=== PATIENT | male | born 1990 | race Caucasian/White ===

== ENCOUNTER 2020-10-18 10:56 | Emergency (ER) | payer OTHER | END 2020-10-18 12:39 | disposition home or self-care (01) | LOC: NAV ERS 10:56 | DX: T23.001A Burn of unspecified degree of right hand, unspecified site, initial encounter (principal); R27.8 Other lack of coordination; F17.210 Nicotine dependence, cigarettes, uncomplicated; W86.1XXA Exposure to industrial wiring, appliances and electrical machinery, initial encounter | CPT/HCPCS: 99284 ==

== ENCOUNTER 2023-03-27 11:31 | Emergency (ER) | payer SELFPAY ==
[2023-03-27] MEDS ORDERED: Ketorolac Tromethamine 30 MG/ML VIAL ONE (12:04)
== END 2023-03-27 12:25 | disposition home or self-care (01) ==
LOC: NAV ERS 11:31
DX: K04.7 Periapical abscess without sinus (principal); F17.210 Nicotine dependence, cigarettes, uncomplicated; Z79.82 Long term (current) use of aspirin
CPT/HCPCS: 96372; 99283; J1885